=== PATIENT | female | born 1940 | race African-American/Black ===

== ENCOUNTER 2018-12-06 20:39 | Emergency (ER) | payer MEDICARE, OTHER ==
[~2018-12-06] VITALS: Ht 162.6 cm; Wt 99.8 kg
[2018-12-06] MEDS ORDERED: CLIN300C8 PO (21:12)
[2018-12-06] MEDS ORDERED: DIPHTH,PERTUSS(ACELL),TET TOX 0.5 ML DISP.SYRIN. VAX IM ONE (21:15)
[2018-12-06] MEDS ORDERED: CLINDAMYCIN 900 MG/6 ML VIAL. IM ONE (21:15)
--- NOTE | 2018-12-06 21:20 | PHYS DOC ---
Past History Past Medical History: Cancer, Hypertension Past Surgical History: Tubal ligation, Other Alcohol Use: None Drug Use: None Adult General Chief Complaint Chief Complaint: UPPER EXTREMITY INJURY HPI HPI Patient is a 78 yo f with right bicep pain and swelling x 1 day. thought something might have bit her there she felt something crawling she brushed her arm but then didnt see anything specifically. since then increasing pain redness and swelling mild to moderate nonradiating to upper arm no fever no cp or sob has not tried anything for relief. Review of Systems Review of Systems Constitutional: Denies fever or chills [] Eyes: Denies change in visual acuity, redness, or eye pain [] HENT: Denies nasal congestion or sore throat [] Respiratory: Denies cough or shortness of breath [] Cardiovascular: No additional information not addressed in HPI [] GI: Denies abdominal pain, nausea, vomiting, bloody stools or diarrhea [] All other systems were reviewed and found to be within normal limits, except as documented in this note. Current Medications Current Medications Current Medications Medications (Trade) Dose Ordered Sig/Nithin Start Time Stop Time Status Last Admin Dose Admin Clindamycin Phosphate (Cleocin) 600 mg 1X ONCE 12/06/18 21:15 12/06/18 21:16 UNV Diphtheria/ Tetanus/Acell Pertussis (Boostrix) 0.5 ml ONCE ONCE 12/06/18 21:15 12/06/18 21:16 UNV Physical Exam Physical Exam Constitutional: Well developed, well nourished, no acute distress, non-toxic appearance. [] HENT: Normocephalic, atraumatic, bilateral external ears normal, oropharynx moist, no oral exudates, nose normal. [] Eyes: PERRLA, EOMI, conjunctiva normal, no discharge. [] Neck: Normal range of motion, no tenderness, supple, no stridor. [] Abdomen: Bowel sounds normal, soft, no tenderness, no masses, no pulsatile masses. [] Skin: there is induration erythema mild to moderate ttp noted with some mild ecchymosis to the anterior bicep area. Back: No tenderness, no CVA tenderness. [] Extremities: No tenderness, no cyanosis, no clubbing, ROM intact, no edema. [] Neurologic: Alert and oriented X 3, normal motor function, normal sensory function, no focal deficits noted. [] Current Patient Data Vital Signs Vital Signs Date Time Temp Pulse Resp B/P (MAP) Pulse Ox O2 Delivery O2 Flow Rate FiO2 12/06/18 20:39 99.1 87 18 98 Room Air EKG EKG [] Radiology/Procedures Radiology/Procedures [] Impressions: * None Temperature (Fahrenheit): * 99.1 degrees F (97.6-99.5) Patient Temperature * 99.1 degrees F (97.5-99.5) Temperature Source * Oral Blood Pressure Systolic * 164 mm Hg (100-140) H Blood Pressure Diastolic * 85 mm Hg (60-100) Blood Pressure Mean * 111 mm Hg Blood Pressure Location * Left Arm Blood Pressure Source * Automatic Cuff Pulse Rate * 87 beats per minute (60-90) Pulse Assessment Method * Monitor Respiratory Rate * 18 breaths per minute (12-24) Oxygen Delivery Method * Room Air Bedside Pulse Oximetry * 98 % Treatment Prior to Arrival Course & Med Decision Making Course & Med Decision Making Pertinent Labs and Imaging studies reviewed. (See chart for details) []suspet cellulitis possibly from bite? by history she is not sure nevertheless induration and erythema present. pt well appearing appears focal clinda im, pt has "welts" to pcn so stick with clindamycin tetanus also updated return prec discussed for increasing fever, redness not improing as expected. Dragon Disclaimer Dragon Disclaimer This electronic medical record was generated, in whole or in part, using a voice recognition dictation system. Departure Departure: Impression: Primary Impression: Cellulitis Disposition: 01 HOME, SELF-CARE Condition: STABLE Patient Instructions: Cellulitis, [id number] Scripts Clindamycin Hcl (CLINDAMYCIN HCL) 300 Mg Capsule 1 CAP PO TID for cellulitis, #21 CAP Prov: YOVANI VIDALES MD 12/06/18 YOVANI VIDALES MD Dec 06, 2018 21:20
[2018-12-06 21:50] VITALS: BP 150/91
== END 2018-12-06 21:55 | disposition home or self-care (01) ==
LOC: ER 20:39
DX: L03.113 Cellulitis of right upper limb (principal); I10 Essential (primary) hypertension
CPT/HCPCS: 90471; 90715; 96372; 99284-25

== ENCOUNTER 2018-12-08 16:43 | Inpatient (IN) | payer MEDICARE ==
[~2018-12-08] VITALS: Ht 162.6 cm; Wt 99.4 kg
[~2018-12-08 16:43] MED LIST: CLIN300C8 PO
--- NOTE | 2018-12-08 17:55 | PHYS DOC ---
Past History Past Medical History: Cancer, Hypertension Past Surgical History: Tubal ligation, Other Alcohol Use: None Drug Use: None Adult General Chief Complaint Chief Complaint: UPPER EXTREMITY PAIN HPI HPI 78-year-old female presents with right upper extremity cellulitis. She was seen by my colleague a couple days ago. They aamir blood around the cellulitis at that time. She was given an oral antibiotic, the patient does not car and was unable to pick it up until today. He is only had 1 dose. She returns emergency room because the redness of her upper arm is significantly expanded. It does follow a gown her elbow and most circumference of the upper arm. She denies fever or chills. There are also some blisters forming at the margins of the cellulitis. She has no other complaints at this time. Review of Systems Review of Systems Constitutional: Denies fever or chills [] Eyes: Denies change in visual acuity, redness, or eye pain [] HENT: Denies nasal congestion or sore throat [] Respiratory: Denies cough or shortness of breath [] Cardiovascular: No additional information not addressed in HPI [] GI: Denies abdominal pain, nausea, vomiting, bloody stools or diarrhea [] : Denies dysuria or hematuria [] Musculoskeletal: Denies back pain or joint pain [] Integument: Cellulitis right arm[] Neurologic: Denies headache, focal weakness or sensory changes [] Endocrine: Denies polyuria or polydipsia [] All other systems were reviewed and found to be within normal limits, except as documented in this note. Allergies Allergies Allergies Coded Allergies Type Severity Reaction Last Updated Verified Penicillins Allergy Mild 12/06/18 Yes Physical Exam Physical Exam Constitutional: Well developed, well nourished, no acute distress, non-toxic appearance. [] HENT: Normocephalic, atraumatic, bilateral external ears normal, oropharynx moist, no oral exudates, nose normal. [] Eyes: PERRLA, EOMI, conjunctiva normal, no discharge. [] Neck: Normal range of motion, no tenderness, supple, no stridor. [] Cardiovascular:Heart rate regular rhythm, no murmur [] Lungs & Thorax: Bilateral breath sounds clear to auscultation [] Abdomen: Bowel sounds normal, soft, no tenderness, no masses, no pulsatile masses. [] Skin: Cellulitis of the entire upper right arm from elbow to shoulder. No discrete abscess.[] Back: No tenderness, no CVA tenderness. [] Extremities: No tenderness, no cyanosis, no clubbing, ROM intact, no edema. [] Neurologic: Alert and oriented X 3, normal motor function, normal sensory function, no focal deficits noted. [] Psychologic: Affect normal, judgement normal, mood normal. [] EKG EKG [] Radiology/Procedures Radiology/Procedures [] Course & Med Decision Making Course & Med Decision Making Pertinent Labs and Imaging studies reviewed. (See chart for details) There is on the patient's physical exam, her cellulitis is rapidly spreading. She will need to be admitted for IV antibiotics. Her lab workup is pending. I discussed the patient with Dr. Mcdaniel and he has accepted the patient for admission. The patient is in agreement with this plan. I have started the patient on vancomycin and Rocephin. Blood cultures were sent. Lactic acid was drawn. Lactic acid is 3.1. The patient is getting IV fluids. The patient's blood pressure is within normal limits, her heart rate was normal limits, her respiratory rate was within normal limits, her WBC is normal range. Though the patient has a known infection and elevated lactic acid, she does not meet sepsis criteria. [] Dragon Disclaimer Dragon Disclaimer This electronic medical record was generated, in whole or in part, using a voice recognition dictation system. Departure Departure: Impression: Primary Impression: Cellulitis of right upper arm Disposition: ADMITTED INPATIENT Admitting Physician: Ovidio Mcdaniel Condition: STABLE Referrals: OVIDIO MCDANIEL MD (PCP) VANCE WINTER DO Dec 08, 2018 17:55
[2018-12-08] MEDS ORDERED: VANCOMYCIN 1.5 GM in IV NORMAL SALINE 500ML 500 ML IV ONE (18:00)
[2018-12-08] MEDS ORDERED: IV NORMAL SALINE 1,000ML 1,000 ML IV ONE (18:00)
[2018-12-08] MEDS ORDERED: ONDANSETRON PF 4 MG/2 ML VIAL. IV PRN (18:15)
[2018-12-08] MEDS ORDERED: MORPHINE SULFATE 2 MG/ML DISP.SYRIN. IV PRN (18:15)
[2018-12-08 18:40] LABS: BASO # 0.1 x10^3/uL (0.0-0.2); BASO % 1 % (0-3); EOS # 0.7 x10^3/uL (0.0-0.7); EOS % 7 % (0-3); HEMATOCRIT 41.4 % (36.0-47.0); LYMPH % 22 % (24-48); MEAN CORPUSCULAR HEMOGLOBIN 30 pg (25-35); MEAN CORPUSCULAR HGB CONC 34 g/dL (31-37); MEAN CORPUSCULAR VOLUME 87 fL (79-100); MONO # 0.9 x10^3/uL (0.0-1.1); MONO % 10 % (0-9); NEUT # 5.5 x10^3uL (1.8-7.7); NEUT % 60 % (31-73); PLATELET COUNT 197 x10^3/uL (140-400); RED BLOOD COUNT 4.74 x10^6/uL (3.50-5.40); RED CELL DISTRIBUTION WIDTH 15.3 % (11.5-14.5); WHITE BLOOD COUNT 9.2 x10^3/uL (4.0-11.0)
[2018-12-08] MEDS ORDERED: cefTRIAXone SODIUM 1 GM VIAL ONE (19:15)
[2018-12-08] MEDS ORDERED: IV NORMAL SALINE 50ML 50 ML ONE (19:15)
[2018-12-08] MEDS ORDERED: VANCOMYCIN 2 GM in IV NORMAL SALINE 500ML 500 ML IV ONE (20:30)
[2018-12-08 20:31] LABS: ALBUMIN 3.6 g/dL (3.4-5.0); ALBUMIN/GLOBULIN RATIO 0.8 (1.0-1.7); CALCIUM 9.6 mg/dL (8.5-10.1); CREATININE 1.2 mg/dL (0.6-1.0); GFR 52.4; POTASSIUM 4.4 mmol/L (3.5-5.1); TOTAL BILIRUBIN 1.1 mg/dL (0.2-1.0); TOTAL PROTEIN 8.4 g/dL (6.4-8.2)
[2018-12-08 20:54] VITALS: BP 145/86
[2018-12-08] MEDS ORDERED: ASPI-630 PO (21:04)
[2018-12-08] MEDS ORDERED: METO50TA29 PO (21:04)
[2018-12-08] MEDS ORDERED: ZOLPIDEM 5 MG TABLET. PO PRN (22:15)
[2018-12-08] MEDS ORDERED: HYDROcodone/APAP 7.5/325MG 1 TAB TABLET PO PRN (22:15)
[2018-12-08] MEDS ORDERED: VANCOMYCIN PER PHARMACY MC PRN (22:15)
[2018-12-08] MEDS ORDERED: ACETAMINOPHEN 500 MG TABLET PO PRN (22:15)
[2018-12-08 23:37] VITALS: BP 125/78
[2018-12-09] MEDS: ASPIRIN 81 MG TAB.CHEW PO SCH (07:52)
[2018-12-09] MEDS: METOPROLOL SUCC 24HR ER 50 MG TAB.ER.24H. PO SCH (07:53)
[2018-12-09 08:33] VITALS: BP 125/78
[2018-12-09] MEDS ORDERED: IOHEXOL 300 MG/ML 75 ML VIAL. IV ONE (09:45)
--- NOTE | 2018-12-09 10:27 | HP ---
ADMIT DATE: 12/08/2018 HISTORY OF PRESENT ILLNESS: A 78-year-old female came in through the Emergency Room and the patient apparently approximately 3 days ago was possibly bitten by an insect on her right arm. She tried to get the antibiotics, but apparently was unable to get them picked up and became increasingly worse with redness and swelling to the upper arm. She noted, even though she denied any fever or chills, the redness spread, the arm began to hurt even more, it swelled up. She came in through the Emergency Room and now the skin has turned black and blistering on the upper right arm. The arm itself is markedly expanded. The patient has a previous history of lung cancer. The patient was admitted for IV antibiotic therapy, failure of outpatient therapy. PAST MEDICAL HISTORY: She has had a left total lobectomy for lung cancer done at [facility]. She had a previous history of smoking. She has had a history of hypertension and alike. IMMUNIZATIONS: Not up-to-date. She does not believe them, does not like to get shots. ALLERGIES: The patient has an ADVERSE REACTION TO PENICILLIN. HOME MEDICATIONS: Metoprolol 50 mg a day, aspirin 81. SOCIAL HISTORY: The patient used to be a smoker and history of lung cancer, of course, 30-pack to [id number] history. The patient denies immunizations as noted and is a full code. REVIEW OF SYSTEMS: Denies any headaches, visual change, blurred vision, double vision. Denies any chest pain, shortness of breath. Denies any problems outside of the swelling to the right arm, massively swollen, painful, as noted progressively worse. The patient denies any nausea, vomiting, melena, hematochezia, hematemesis. Neurologically, the patient is alert and oriented x 3. PHYSICAL EXAMINATION: GENERAL: The patient, on exam, is a pleasant Afro-[place] female. VITAL SIGNS: Blood pressure 125/78, respirations 18, pulse 72, afebrile presently. Oxygen saturation 96%. HEENT: The patient's head was atraumatic, normocephalic. Eyes: PERRLA without jaundice. Mouth and throat were normal. NECK: Supple. EXTREMITIES: The right arm is massively swollen, redness extending to approximately 3/4 of the arm itself with a girth of the arm approximately 4-5 cm larger than the left arm. Pulses noted distally. Necrotic areas up the right upper arm, approximately 10 cm, with some blistering noted to the base of that necrotic area. The patient otherwise as noted. LUNGS: Clear. CARDIOVASCULAR: Regular sinus rhythm. ABDOMEN: Soft, protuberant. EXTREMITIES: No clubbing, cyanosis, or edema. NEUROLOGIC: Intact. LABORATORY DATA: White count 9.2, hemoglobin 14, hematocrit 41, platelets 197. Chemistries 139/4.4, creatinine 1.2, GFR 52, glucose 120. Lactic acid originally 3.1, down to 1.9, total bilirubin elevated at 1.1. AST, ALT all normal as well as her albumin with total albumin slightly elevated at 8.4. Other images of chest x-ray, CT of the right arm are pending. Blood cultures pending. IMPRESSION: Cellulitis to the right upper arm with necrotic areas noted to the arm with blistering. We will go ahead and continue with IV antibiotic, vancomycin, Levaquin and make further evaluation. Consulted ID down at and other specialists not available here. The patient understands and is willing to be transferred for possible evaluation of possible some type of fasciitis or myositis in that arm. MARK ARRIAGA MD DR: MELVIN/mark JOB#: [id number] / [id number]
[2018-12-09 11:35] VITALS: BP 94/56
--- NOTE | 2018-12-09 13:46 | RAD ---
CT right humerus Indication: Cellulitis or necrotizing fasciitis anterior to the humerus. Exposure: One or more of the following individualized dose reduction techniques were utilized for this examination: 1. Automated exposure control 2. Adjustment of the mA and/or kV according to patient size 3. Use of iterative reconstruction technique. Technique: Standard imaging without intravenous contrast. Mild stranding within the subcutaneous fat in the anterior upper arm. There is mild skin thickening. There is a focal area of lobular swelling at the skin surface of the anterior proximal aspect of the upper arm, series 4, image 102, measures 2.4 cm x 2.5 cm x 0.8 cm. No evidence of subcutaneous air or emphysema. No organized drainable fluid collection or abscess is seen. No acute fracture. No aggressive bone destruction or periosteal reaction is seen. The visualized right lung appears grossly clear. Degenerative changes are identified about the shoulder. IMPRESSION: 1. Stranding within the subcutaneous fat of the upper arm, greater anteriorly, compatible with edema or cellulitis. No evidence of soft tissue emphysema. 2. Small nodular structure at the skin surface of the anterior proximal aspect of the upper arm, could represent a small mass or area of inflammatory/infectious swelling or blistering. Electronically signed by: Rohan Yeung MD (12/09/2018 1:44 PM) [id number]
[2018-12-09 15:03] VITALS: BP 104/74
--- NOTE | 2018-12-09 17:30 | RAD ---
Examination: Ultrasound right upper extremity soft tissue HISTORY: History of cellulitis. COMPARISON: None available Findings/ impression: Ultrasound of the right humerus region ,at the site of discoloration ,demonstrates no definite evidence of focal fluid collection or increased vascular flow. Electronically signed by: Moreno Longoria MD (12/09/2018 5:27 PM) [place] [id number]
--- NOTE | 2018-12-09 17:48 | RAD ---
CHEST PA LATERAL History: Sepsis Comparison: None. Findings: PA and lateral views of chest were obtained. Left pneumonectomy noted. Right lung field is clear. Elevation of the left hemidiaphragm noted presumably related to postoperative status. No right pleural effusion. No acute bony process. IMPRESSION: Right lung is clear. Electronically signed by: Davion Melchor MD (12/09/2018 5:45 PM) [facility]
[2018-12-09 21:07] VITALS: BP 141/84
[2018-12-09] MEDS ORDERED: VANCOMYCIN 1.5 GM in IV NORMAL SALINE 500ML 500 ML IV SCH (22:00)
[2018-12-10 07:30] VITALS: BP 112/72
[2018-12-10] MEDS: METOPROLOL SUCC 24HR ER 50 MG TAB.ER.24H. PO SCH (09:15)
[2018-12-10] MEDS: ASPIRIN 81 MG TAB.CHEW PO SCH (09:15)
[2018-12-10 10:38] VITALS: BP 104/61
[2018-12-10 10:44] LABS: BASO # 0.1 x10^3/uL (0.0-0.2); BASO % 0 % (0-3); EOS % 6 % (0-3); LYMPH % 13 % (24-48); MONO # 0.8 x10^3/uL (0.0-1.1); MONO % 5 % (0-9); NEUT % 76 % (31-73)
[2018-12-10 10:46] LABS: HEMOGLOBIN 12.9 g/dL (12.0-15.5); MEAN CORPUSCULAR HEMOGLOBIN 29 pg (25-35); MEAN CORPUSCULAR HGB CONC 34 g/dL (31-37)
[2018-12-10 10:47] LABS: RED BLOOD COUNT 4.47 x10^6/uL (3.50-5.40); WHITE BLOOD COUNT 15.8 x10^3/uL (4.0-11.0)
[2018-12-10 10:48] LABS: HEMATOCRIT 38.5 % (36.0-47.0); MEAN CORPUSCULAR VOLUME 86 fL (79-100); PLATELET COUNT 150 x10^3/uL (140-400); RED CELL DISTRIBUTION WIDTH 15.1 % (11.5-14.5)
[2018-12-10 10:50] LABS: CALCIUM 8.9 mg/dL (8.5-10.1); GFR 64.7; POTASSIUM 3.9 mmol/L (3.5-5.1)
[2018-12-10 11:46] LABS: % BANDS 4 % (0-9); % BASOS 0 % (0-3); % EOS 8 % (0-5); % LYMPHS 16 % (24-48); % MONOS 2 % (0-10); % SEGS 70 % (35-66); ANISOCYTOSIS PRESENT; PLT ESTIMATE DECREASED (ADEQUATE); TARGET CELLS PRESENT
[2018-12-10 11:47] LABS: TOXIC GRANULATION PRESENT; TOXIC VACUOLATION PRESENT
[2018-12-10] MEDS ORDERED: APIXABAN 2.5 MG TABLET PO SCH (14:45)
[2018-12-10 15:09] VITALS: BP 94/59
--- NOTE | 2018-12-10 18:37 | PN ---
DATE: 12/10/2018 SUBJECTIVE: The patient is in with cellulitis to her right upper arm and shoulder area and it actually looks somewhat worse today than yesterday. The patient is on vancomycin and Levaquin. OBJECTIVE: VITAL SIGNS: The patient is running a low-grade temperature of 99, otherwise her blood pressure 140/80, respiratory rate 20, pulse 85, temperature 99.3 and 98% on room air oxygen. GENERAL: In any case, the patient is in fairly good spirits, still having some pain, obviously to the right upper arm, which is markedly swollen, seems to be spreading more than improving with the double antibiotics. LUNGS: Diminished, but clear. CARDIOVASCULAR: Regular sinus rhythm. ASSESSMENT AND PLAN: The patient has had previous surgery on the left side of her left lung lobectomy from lung cancer. Chest x-ray here does not demonstrate any reoccurrence of any problems there. In any case, the patient is resting fairly comfortably, trying to get her transferred for further ID or surgical intervention as indicated per those results. I did talk to transfer team at and waiting to hear back from them and possible transfer. MARK ARRIAGA MD DR: MELVIN/mark JOB#: [id number] / [id number]
--- NOTE | 2018-12-14 20:27 | DS ---
DATE OF DISCHARGE: 12/10/2018 HISTORY OF PRESENT ILLNESS AND HOSPITAL COURSE: This 78-year-old -[place] female had a severe left arm infection. The patient had failed outpatient therapy, it got progressively worse. There was some necrotic area noted in the right upper arm as it became markedly swollen. The patient had a previous history of a total lobectomy for lung cancer at [facility]. The patient's arm is massively swollen. There were good pulses noted and also good hand movement, but the arm itself was swollen beyond the comparison to the left arm. The patient's white count was never terribly elevated. There was no left shift, but clinically, this patient had a significant problem with her left arm. Her C-reactive protein was basically 95. She had an elevated lactic acid of 3.1. She was placed on combination of vancomycin and Zosyn and she had a CT scan of the upper arm, which showed stranding without subcutaneous fat, greater compatibility, small nodular areas, possible mass or inflammatory evidence. She also had blistering and necrotic skin. The ultrasound of the arm did not demonstrate any definite problem there or clots. The patient's chest x-ray showed the right lung was clear. Left lung, of course was absent. In any case, the patient made fair progress, but not very substantial and it was recommended that she be transferred down to for Infectious Disease and further evaluation, possible Orthopedics on that arm. She was transferred via EMS and she consented to it. IMPRESSION: Sepsis, cellulitis to the right arm, history of lung cancer, hyperglycemia. PLAN: The patient will be discharged home, followed up as an outpatient and make further evaluation on her when she returns from . MARK ARRIAGA MD DR: MELVIN/mark JOB#: [id number] / [id number]
== END 2018-12-10 17:05 | disposition short-term general hospital (02) | DRG 872 ==
LOC: ER 16:43 → 1 SOUTH 18:00 → ER 19:35
PROVIDERS: ADMIT Family Medicine; ATTEND Family Medicine
DX: A41.9 Sepsis, unspecified organism (principal); L03.113 Cellulitis of right upper limb; I10 Essential (primary) hypertension; Z85.118 Personal history of other malignant neoplasm of bronchus and lung; Z87.891 Personal history of nicotine dependence; Z98.51 Tubal ligation status; Z88.0 Allergy status to penicillin
CPT/HCPCS: 36415; 71046; 73200; 76881; 80048; 80053; 82550; 83605; 85007; 85025; 85651; 86140; 87040; 96374; J0696; J1956; J3370; J7040; 99285-25; J7030

== ENCOUNTER → 2020-11-09 | Outpatient (CLI) | payer MEDICARE ==
[~2020-11-09] MED LIST changes: +ASPI-630 PO; -CLIN300C8 PO; +CLIN300C9 PO; +METO50TA29 PO
--- NOTE | 2020-11-09 15:08 | RAD ---
EXAM: Parathyroid scintigraphy. HISTORY: Serologic hyperparathyroidism. COMPARISON: None. FINDINGS: 20 mCi Tc-99m's sestamibi was administered intravenously. Scintigraphic imaging of the neck and upper mediastinum was performed before and after a delay. There is no clear focus of persistent activity on delayed imaging suggestive of parathyroid adenoma. IMPRESSION: 1. No parathyroid adenoma is detected by this technique. Electronically signed by: Hafsa Hernandes MD (11/09/2020 3:05 PM) [facility]
--- NOTE | 2020-11-09 15:08 | RAD ---
EXAM: Parathyroid scintigraphy. HISTORY: Serologic hyperparathyroidism. COMPARISON: None. FINDINGS: 20 mCi Tc-99m's sestamibi was administered intravenously. Scintigraphic imaging of the neck and upper mediastinum was performed before and after a delay. There is no clear focus of persistent activity on delayed imaging suggestive of parathyroid adenoma. IMPRESSION: 1. No parathyroid adenoma is detected by this technique. Electronically signed by: Hafsa Hernandes MD (11/09/2020 3:05 PM) [facility]
== END ==
LOC: NM 08:54
PROVIDERS: ATTEND Internal Medicine
DX: E21.5 Disorder of parathyroid gland, unspecified (principal)
CPT/HCPCS: 78070; A9500